=== PATIENT | male | born 1950 | race African-American/Black ===

== ENCOUNTER 2017-03-01 16:30 | Emergency (ER) | payer OTHER ==
[~2017-03-01] VITALS: Ht 177.8 cm; Wt 116.6 kg
[~2017-03-01 16:30] MED LIST: ADVIL200 M3 PO; ALBUTEROL17 GM INH; ALBUTEROL2.5 MG/0.5 IH; AMITRIPTYLINE H25 MG PO; AMLODIPINE BESYL5 MG PO; ASPIR-TRIN325 MG PO; ASPIRIN ENTERI325 M1 PO; ASPIRIN325 M1 PO; ASPIRIN81 M1 PO; ASPIRIN81 M2 PO; ATARAX; AUGMENTIN875 M1 PO; AZASAN100 M1 PO; AZATHIOPRINE50 M1 PO; B COMPLEX/FOLIC1 TAB PO; B COMPLEX1 CA1 PO; BAYER ASPIRIN325 M1 PO; BENAZEPRIL HCL40 MG PO; BISACODYL EC5 MG DOB; BUFFERIN EX ST500 MG PO; BUMEX PO; CALCIUM ACETAT667 M1 PO; CALCIUM ACETAT667 MG PO; CARVEDILOL6.25 MG PO; CEPHALEXIN500 M1 PO; CERTAGEN PO; COMBIVENT MININEB INH; COMBIVENT U/D3 M1 INH; COMBIVENT U/D3 ML INH; COMBIVENT14.7 GM INH; COREG3.125 MG PO; COREG6.25 MG PO; CORRECTOL5 MG PO; DALIRESP500 MCG PO; DOK100 MG PO; FISH OIL 1,2001 CAP PO; FISH OIL 1,2001 EAC1 PO; FISH OIL 1,2001 EACH PO; FISH OIL300 MG PO; FLOMAX0.4 M1 PO; HUMALOG100 U/ML; HYDRALAZINE HCL50 MG PO; IMDUR-ER30 M1 PO; IMURAN50 MG PO; ISORDIL PO; ISOSORBIDE DINI30 MG PO; LEVAQUIN250 MG; LEVAQUIN250 MG PO; LEVAQUIN750 MG PO; LISINOPRIL PO; LISINOPRIL10 MG PO; LISINOPRIL20 MG PO; LORTAB 10/500 T1 TAB PO; MEDROL4 MG/DOSE- PO; MOTRIN600 M2 PO; MOTRIN600 MG PO; MULTI VITAMIN1 EACH PO; MULTI-VITAMIN1 EAC1 PO; NEPHROCAPS CAPSU1 MG PO; NEURONTIN100 MG PO; NICOTINE TRANSD21 MG EXT; NICOTINE1 EAC1 TD; NITROGLYGERIN0.4 MG SL; NITROSTAT0.4 MG PO; NITROSTAT0.4 MG SL; NORMODYNE100 MG PO; NORVASC PO; OMEPRAZOLE20 M2 PO; OMEPRAZOLE40 MG PO; PEPCID PO; PERCOCET 10/3251 TAB PO; PERCOCET 71 UDTAB 71 PO; PERCOCET10 PO; PERCOCET5/325 PO; PHENERGAN25 MG PO; PHENOL-SODIUM180 M1 MM; PHOSLO667 M1 PO; PHOSLO667 MG PO; PLAVIX PO; PRAVACHOL PO; PRAVASTATIN SOD40 MG PO; PREDNISONE PO; PREDNISONE10 MG PO; PREDNISONE5 M1 DOB; PREDNISONE5 M1 PO; PRILOSEC20 MG PO; PRILOSEC40 MG PO; PRINIVIL40 MG PO; PROCRIT10000 U/ML INJ; PROTONIX PO; PROTONIX20 MG PO; RENAL SOFTGEL1 MG PO; SODIUM BICARBO650 MG PO; SUPER B COMPLEX1 CAP PO; SYMBICORT 160/4.6 G1 IH; SYMBICORT 16010.2 GM IH; SYMBICORT INH; TOPICORT60 GM; TRAMADOL HCL50 M1 PO; TRANDATE100 MG PO; ULTRAM PO; VICODIN 5/1 TAB 5/50 PO; VITAL-D RX TABL1 TAB PO; VITAMIN B COMP1 EACH PO; VITAMIN D1000 UNI1 PO; VITAMIN D1000 UNIT PO; VITAMIN D31000 UNIT PO; VITAMIN D400 UNI2; VITAMIN D400 UNI2 PO; ZANTAC PO; ZESTRIL40 MG PO; ZITHROMAX1 G/PKT PO; ZITHROMAX500 MG PO; ZOCOR20 MG PO; [UNRECOGNIZED DRUG - OTHER] PO; [UNRECOGNIZED DRUG - OTHER] PO
== END 2017-03-01 18:46 | disposition home or self-care (01) ==
LOC: CED 16:30
DX: R09.02 Hypoxemia (principal); I11.0 Hypertensive heart disease with heart failure; I50.9 Heart failure, unspecified; E78.5 Hyperlipidemia, unspecified; K21.9 Gastro-esophageal reflux disease without esophagitis; J44.9 Chronic obstructive pulmonary disease, unspecified; F17.200 Nicotine dependence, unspecified, uncomplicated; Z95.818 Presence of other cardiac implants and grafts; Z88.1 Allergy status to other antibiotic agents; Z88.8 Allergy status to other drugs, medicaments and biological substances
CPT/HCPCS: 82947; 99284